=== PATIENT | male | born 1970 | race Caucasian/White ===

== ENCOUNTER 2025-01-28 09:55 | Outpatient (CLI) | payer BC, SELFPAY ==
--- NOTE | 2025-01-28 10:20 | NEURO_ITS ---
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 # Severe left Carpal Tunnel Syndrome. # Moderate right Carpal Tunnel Syndrome. 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 # Normal Needle/EMG exam. Nerve Conduction Studies ?Stim Site NR Peak (ms) P-T Amp (?V) Site1 Site2 Delta-P (ms) Dist (cm) Eliseo (m/s) Left Median Anti Sensory (2-3nd Digit) Wrist ? 13.4 11.3 Wrist 2-3nd Digit 13.4 14.0 10 Wrist ? 12.7 4.6 Wrist 2-3nd Digit 13.4 14.0 10 Right Median Anti Sensory (2-3nd Digit) Wrist ? 7.9 7.4 Wrist 2-3nd Digit 7.9 14.0 18 Wrist ? 6.1 7.1 Wrist 2-3nd Digit 7.9 14.0 18 Left Radial Anti Sensory (Base 1st Digit) Wrist ? 1.9 16.4 Wrist Base 1st Digit 1.9 0.0 Right Radial Anti Sensory (Base 1st Digit) Wrist ? 2.2 24.2 Wrist Base 1st Digit 2.2 0.0 Left Ulnar Anti Sensory (5th Digit) Wrist ? 3.4 12.6 Wrist 5th Digit 3.4 14.0 41 Right Ulnar Anti Sensory (5th Digit) Wrist ? 3.2 7.6 Wrist 5th Digit 3.2 14.0 44 ?Stim Site NR Onset (ms) O-P Amp (mV) Site1 Site2 Delta-0 (ms) Dist (cm) Eliseo (m/s) Left Median Motor (Abd Poll Brev) Wrist ? 10.8 2.2 Elbow Wrist 6.1 33.0 54 Elbow ? 16.9 2.6 Right Median Motor (Abd Poll Brev) Wrist ? 8.2 1.4 Elbow Wrist 7.6 33.0 43 Elbow ? 15.8 1.1 Left Ulnar Motor (Abd Dig Minimi) Wrist ? 3.5 5.5 A Elbow Wrist 6.0 31.0 52 A Elbow ? 9.5 4.7 B Elbow Wrist 5.2 27.0 52 B Elbow ? 8.7 4.6 Right Ulnar Motor (Abd Dig Minimi) Wrist ? 3.5 7.2 A Elbow Wrist 6.6 33.0 50 A Elbow ? 10.1 5.9 B Elbow Wrist 5.2 26.0 50 B Elbow ? 8.7 5.0 F Wave Studies ?NR F-Lat (ms) L-R F-Lat (ms) Left Median (Mrkrs) (Abd Poll Brev) ? 28.71 12.22 Right Median (Mrkrs) (Abd Poll Brev) ? 40.94 12.22 Left Ulnar (Mrkrs) (Abd Dig Min) ? 33.63 0.00 Right Ulnar (Mrkrs) (Abd Dig Min) ? 33.63 0.00 Electromyography ?Side Muscle Nerve Root Ins Act Fibs Amp Dur Recrt Comment Right 1stDorInt Ulnar C8-T1 Nml Nml Nml Nml Nml Right Ext Indicis Radial (Post Int) C7-8 Nml Nml Nml Nml Nml Right Ext Digitorum Radial (Post Int) C7-8 Nml Nml Nml Nml Nml Right BrachioRad Radial C5-6 Nml Nml Nml Nml Nml Right PronatorTeres Median C6-7 Nml Nml Nml Nml Nml Right Abd Poll Brev Median C8-T1 Nml Nml Nml Nml Nml Right ABD Dig Min Ulnar C8-T1 Nml Nml Nml Nml Nml Right FlexPolLong Median (Ant Int) C7-8 Nml Nml Nml Nml Nml Right Abd Poll Long Radial (Post Int) C7-8 Nml Nml Nml Nml Nml Left 1stDorInt Ulnar C8-T1 Nml Nml Nml Nml Nml Left Ext Indicis Radial (Post Int) C7-8 Nml Nml Nml Nml Nml Left Ext Digitorum Radial (Post Int) C7-8 Nml Nml Nml Nml Nml Left BrachioRad Radial C5-6 Nml Nml Nml Nml Nml Left PronatorTeres Median C6-7 Nml Nml Nml Nml Nml Left Abd Poll Brev Median C8-T1 Nml Nml Nml Nml Nml Left ABD Dig Min Ulnar C8-T1 Nml Nml Nml Nml Nml Left FlexPolLong Median (Ant Int) C7-8 Nml Nml Nml Nml Nml Left Abd Poll Long Radial (Post Int) C7-8 Nml Nml Nml Nml Nml
--- OUTSIDE RECORDS SUMMARY | 2025-01-28 10:42 | XMS_ITS | Encounter Summary ---
Author Organization [facility] Address [address] [place] [address] Care Team Providers Care Tour Guide Name Role Phone Kieran Adams Primary Care Provider [phone] Darrick Montague DO Primary Care Provider [facility] Primary Care Provid er Encounter Details Date Type Department Care Team (Late st Contact Info) Description 04/27/2020 [employer] Message [facility] [address] [place] [address] Kieran Adams FNP [address] [place] [address] RE: Medication Questions Social History Tobacco Use Types Packs/Day Years Used Date Smoking Tobacco: Former Cigarettes Q uit: 1999 Smokeless Tobacco: Never Alcohol Use Standard Drinks/Week Comments Yes 0 (1 standard drink = 0.6 oz pur e alcohol) Sex and Gender Information Value Date Recorded Sex Assigned at Not on file Legal Sex Male 7:07 PM CDT Gender Identity Not on file Sexual Orientation Not on file documented as of this encounter Plan of Treatment Not on file documented as of this encounter Visit Diagnoses Not on filedocumented in this encounter Care Teams Tour Guide Relationship Specialty Start Date End Date Kieran Adams FNP [address] [place] [address] PCP - General NURSE PRACTITIONER 05/09/18 02/06/21 Darrick Montague DO [address] [place] [address] PCP - General FAMILY PRACTICE 02/07/21 08/05/23 Cathy Mcrae, [facility]- [address] [place] [id number] PCP - General Nurse Practitioner Family 08/06/23 documented as of this encounter
--- OUTSIDE RECORDS SUMMARY | 2025-01-28 10:42 | XMS_ITS | Encounter Summary ---
Author Organization [facility] Address [address] [place] [address] Care Team Providers Care Body Hanger Name Role Phone Darrick Montague DO Primary Care Provider Cathy Mcrae [facility] Primary Care Provid er Encounter Details Date Type Department Care Team (Late st Contact Info) Description 06/15/2023 [employer] Message [address] [address] Darrick Montague DO [address] [place] [address] RE: Test Results Social History Tobacco Use Types Packs/Day Years Used Date Smoking Tobacco: Former Cigarettes 1 10 0 11/28/1988 - 11/28/1998 Smokeless Tobacco: Never Alcohol Use Standard Drinks/Week Comments Yes 6.7 (1 standard drink = 0.6 oz p ure alcohol) Occasionally PHQ-2 Answer Date Recorded Patient Health Questionnaire-2 Score 0 06/14/2023 Sex and Gender Information Value Date Recorded Sex Assigned at Not on file Legal Sex Male 7:07 PM CDT Gender Identity Not on file Sexual Orientation Not on file documented as of this encounter Functional Status * RETIRED Are you deaf or do you have serious difficulty hearing Answer Date of Assessment Author Status No 02/25/2022 5:00 PM CDT Activ e * RETIRED Are you blind or do you have serious difficulty seeing, even when wearing glasses? Answer Date of Assessment Author Status No 02/25/2022 3:09 PM CDT Activ e * Do you have serious difficulty walking or climbing stairs? Answer Date of Assessment Author Status No 02/25/2022 3:09 PM CDT Jhonathan Moses RN Active * Do you have difficulty dressing or bathing? Answer Date of Assessment Author Status No 02/25/2022 3:09 PM CDT Jhonathan Moses RN Active * Because of a physical, mental, or emotional condition, do you have difficulty doing errands alone such as visiting a doctor's office or shopping? Answer Date of Assessment Author Status No 02/25/2022 3:09 PM CDT Jhonathan Moses RN Active documented as of this encounter Mental Status * Because of a physical, mental, or emotional condition, do you have serious difficulty concentrating, remembering, or making decisions? Answer Entry Date Author Status No 02/25/2022 3:09 PM CDT Jhonathan Moses RN Active documented in this encounter Progress Notes * Darrick Montague DO - 06/15/2023 1:18 PM CST No major concerns with labs. Just on the very edge of prediabetes, weight loss will help with this M TANK OPERATOR * Lilia Trevino RN - 06/15/2023 1:11 PM CST Please advise? M TANK OPERATOR documented in this encounter Plan of Treatment Not on file documented as of this encounter Visit Diagnoses Not on filedocumented in this encounter Additional Health Concerns Assessment Noted Time PHQ-9 Depression Total Score: 0 06/06/19 22 7:51 AM STEAM TANK OPERATOR documented as of this encounter Care Teams Body Hanger Relationship Specialty Start Date End Date Darrick Montague DO PCP - General FAMILY PRACTICE 02/07/21 08/05/23 Cathy Mcrae FNP- [address] [place] [address] PCP - General Nurse Practitioner Family 08/06/23 documented as of this encounter
--- OUTSIDE RECORDS SUMMARY | 2025-01-28 10:42 | XMS_ITS | Encounter Summary ---
Author Organization [facility] Address [address] [place] [address] Care Team Providers Care Health Insurance Agent Name Role Phone Kieran Adams [facility] Primary Care Provider [phone] WorkDarrick gardner DO Primary Care Provider Clementina Cathy E [facility] Primary Care Provid er Encounter Details Date Type Department Care Team (Late st Contact Info) Description 03/06/2016 Abstract [facility] Conversion Morris Santana MD [id number] [place] [address] Social History Tobacco Use Types Packs/Day Years Used Date Smoking Tobacco: Never Assessed Sex and Gender Information Value Date Recorded Sex Assigned at Not on file Legal Sex Male 7:07 PM CDT Gender Identity Not on file Sexual Orientation Not on file documented as of this encounter Miscellaneous Notes * Letter - Morris Santana MD - 03/06/2016 12:00 AM CST Mar 06, 2016 Morris Reyes [address] [place] [address] Dear Morris Reyes, Thank you for choosing [facility] for your health care needs. We appreciate the opportunity to help you maintain your well being. You recently attended the health fair. Your results came back normal or at goal. Please remember to follow up as discussed at your last appointment. If you have any questions please feel free to call the office at [phone], Option #3 or Option #1 to make an appointment to discuss these results. Respectfully Yours, Electronically Signed by: Morris Santana MD Cc: Patients Medical Record RAL CAR DRIVER documented in this encounter Plan of Treatment Not on file documented as of this encounter Visit Diagnoses Not on filedocumented in this encounter Care Teams Health Insurance Agent Relationship Specialty Start Date End Date Kieran Adams FNP [address] [place] [address] PCP - General NURSE PRACTITIONER 05/09/18 02/06/21 Darrick Montague DO [address] [place] [address] PCP - General FAMILY PRACTICE 02/07/21 08/05/23 Cathy Mcrae FNP- [address] [place] [address] PCP - General Nurse Practitioner Family 08/06/23 documented as of this encounter
--- OUTSIDE RECORDS SUMMARY | 2025-01-28 10:42 | XMS_ITS | Encounter Summary ---
Author Organization [facility] Address [address] [place] [address] Care Team Providers Care Gum Machine Operator Name Role Phone Kieran Adams Primary Care Provider [phone] Darrick Montague DO Primary Care Provider [facility] Primary Care Provid er Encounter Details Date Type Department Care Team (Late st Contact Info) Description 08/03/2020 PurePlay Message [facility] [address] [place] [address] Kieran Adams FNP [address] [place] [address] RE: Question Social History Tobacco Use Types Packs/Day Years [...] on filedocumented in this encounter Care Teams Gum Machine Operator Relationship Specialty Start Date End Date Kieran Adams FNP [address] [place] [address] PCP - General NURSE PRACTITIONER 05/09/18 02/06/21 Darrick Montague DO [address] [place] [address] PCP - General FAMILY PRACTICE 02/07/21 08/05/23 Cathy Mcrae, [facility]- [address] [place] [address] PCP - General Nurse Practitioner Family 08/06/23 documented as of this encounter
--- OUTSIDE RECORDS SUMMARY | 2025-01-28 10:42 | XMS_ITS | Encounter Summary ---
Author Organization [facility] Address [address] [place] [address] Care Team Providers Care Snake Charmer Name Role Phone Kieran Adams Primary Care Provider [phone] Darrick Montague DO Primary Care Provider [facility] Primary Care Provid er Encounter Details Date Type Department Care Team (Late st Contact Info) Description 03/03/2017 [place] [address] , Erich Patterson MD Social History Tobacco Use Types Packs/Day Years [...] on filedocumented in this encounter Care Teams Snake Charmer Relationship Specialty Start Date End Date Kieran Adams FNP [address] [place], [place] [address] PCP - General NURSE PRACTITIONER 05/09/18 02/06/21 Darrick Montague DO [address] [place] [address] PCP - General FAMILY PRACTICE 02/07/21 08/05/23 Cathy Mcrae, MATERIAL ASSISTANT-BC [address] [place] [address] PCP - General Nurse Practitioner Family 08/06/23 documented as of this encounter
--- OUTSIDE RECORDS SUMMARY | 2025-01-28 10:42 | XMS_ITS | Encounter Summary ---
Author Organization [facility] Address [address] [place] [address] Care Team Providers Care Mixing Engineer Name Role Phone Workman, Darrick Richardson DO Primary Care Provider Cathy Mcrae [facility] Primary Care Provid er Encounter Details Date Type Department Care Team (Late st Contact Info) Description 06/26/2022 [employer] Message [address] [id number] [facility] Provider results Social History Tobacco Use Types Packs/Day Years Used Date Smoking Tobacco: Former Cigarettes 1 10 0 11/28/1988 - 11/28/1998 Smokeless Tobacco: Never Alcohol Use Standard Drinks/Week Comments Yes 6.7 (1 standard drink = 0.6 oz p ure alcohol) Occasionally PHQ-2 Answer Date Recorded Patient Health Questionnaire-2 Score 0 06/09/2022 Sex and Gender Information Value Date Recorded Sex Assigned at Not on file Legal Sex Male 7:07 PM CDT Gender Identity Not on file Sexual Orientation Not on file COVID-19 Exposure Response Date Recorded In the last 10 days, have yo u been in contact with someone who was confirmed or suspected to have Coronavirus/COVID-19? No / Unsure 06/09/2022 8:13 AM CHORE WORKER documented as of this encounter Functional Status [...] Assessment Author Status No 02/25/2022 3:09 PM ANIKETT Jhonathan Moses RN Active * Do you have difficulty dressing or bathing? Answer Date of Assessment Author Status No 02/25/2022 3:09 PM Jhonathan Huertas RN Active * Because of a physical, mental, or emotional condition, do you have difficulty doing errands alone such as visiting a doctor's office or shopping? Answer Date of Assessment Author Status No 02/25/2022 3:09 PM Jhonathan Huertas RN Active documented as of this encounter Mental Status * Because of a physical, mental, or emotional condition, do you have serious difficulty concentrating, remembering, or making decisions? Answer Entry Date Author Status No 02/25/2022 3:09 PM Jhonathan [place]ertas RN Active documented in this encounter Plan of Treatment Not on file documented as of this encounter Visit Diagnoses Not on filedocumented in this encounter Additional Health Concerns Assessment Noted Time PHQ-9 Depression Total Score: 0 06/06/19 22 7:51 AM CHORE WORKER documented as of this encounter Care Teams Mixing Engineer Relationship Specialty Start Date End Date Darrick Montague DO PCP - General FAMILY PRACTICE 02/07/21 08/05/23 Cathy Mcrae, PROPELLER DRIVEN AIRPLANE MECHANIC- [address] [place] [address] PCP - General Nurse Practitioner Family 08/06/23 documented as of this encounter
--- OUTSIDE RECORDS SUMMARY | 2025-01-28 10:42 | XMS_ITS | Clinical Summary ---
Author Organization [facility] Address [address] [place] [address] Care Team Providers Care Mat Gauger Name Role Phone [facility] Primary Care Provid er Allergies Active Allergy Reactions Criticality Noted Date Comments Nifedipine Er Headache 04/14/2008 Medications HYDROcodone-acet aminophen (NORCO) 5-325 MG tabletIndication s:Acute Pain < 7 Day Supply Take 1-2 tablets by mouth every 6 (six) hours as needed for Pain. Indications: Acute Pain < 7 Day Supply 15 tablet 2 Active Additional Information Patient not taking.Reported on 06/14/2023 ondansetron (ZOFRAN) 4 MG tablet Take 1 tablet (4 mg total) by mouth every 8 (eight) hours as needed for Nausea. 10 tablet 2 Active Additional Information Patient not taking.Reported on 06/14/2023 triamterene-hydr oCHLOROthiazide (MAXZIDE-25) 37.5-25 MG tabletIndication s:Essential (primary) hypertension take 1 tablet by mouth daily. 90 tablet 1 4 Active metoprolol tartrate (LOPRESSOR) 100 MG tabletIndication s:Essential (primary) hypertension take 1 tablet by mouth daily 90 tablet 1 4 Active Active Problems Problem Noted Date Diagnosed Date Biliary colic 02/25/2022 Overview (02/25/2022): Added automatically from request for surgery [id number] Acute cholecystitis due to biliary calculus 01/29 Class 3 severe obesity due t o excess calories with serious comorbidity and body mass index (BMI) of 40.0 to 44.9 in adult 10/01/2019 Erectile dysfunction, unspecified erectile dysfu nction type 04/07/2019 Essential (primary) hypertension 03/26/2012 Immunizations Immunization Administration Dates Next Due Fluzone 6 Months+ Quad (0.5 mL Prefilled Syringe ) 05/10/2018 Influenza Adult (Generic) 04/07/2019,04/07/2019 Td 01/20/2009 Tdap (Generic) 09/27/2016,09/27/2016 Family History Medical History Relation Comments Cancer Father Diabetes Father Hypertension Father Prostate Cancer Father Diabetes Mother Hypertension Mother Relation Status Comments Father Mother Alive Social History Tobacco Use Types Packs/Day Years Used Date Smoking Tobacco: Former Cigarettes 1 10 0 11/28/1988 - 11/28/1998 Smokeless Tobacco: Never Tobacco Cessation:Counseling Given: Not Answered Alcohol Use Standard Drinks/Week Comments Yes 6.7 (1 standard drink = 0.6 oz p ure alcohol) Occasionally PHQ-2 Answer Date Recorded Patient Health Questionnaire-2 Score 0 06/14/2023 Sex and Gender Information Value Date Recorded Sex Assigned at Not on file Legal Sex Male 7:07 PM CDT Gender Identity Not on file Sexual Orientation Not on file Last Filed Vital Signs Vital Sign Reading Time Taken Comments Blood Pressure 167/102 07/17/2023 9:26 AM CDT Pulse 51 06/14/2023 9:13 AM SCLEROSCOPE TESTER Temperature 36.6 C (97.8 F) 06/14/2023 9:13 AM SCLEROSCOPE TESTER Respiratory Rate 18 06/14/2023 9:13 AM SCLEROSCOPE TESTER Oxygen Saturation 96% 06/14/2023 9:13 AM SCLEROSCOPE TESTER Inhaled Oxygen Concentration - - Weight 155.4 kg (342 lb 8 oz) 07/17/2023 9:18 AM CDT Height 188 cm (6' 2) 07/17/2023 9:18 AM CDT Body Mass Index 43.97 07/17/2023 9:18 AM CDT Plan of Treatment Health Maintenance Due Date Last Done Comments Colorectal Cancer Screening Colonoscopy (10 Years) 1971 Hepatitis C 1989 Hepatitis B Vaccines (1 of 3 - 19+ 3-dose series) 1990 Pneumococcal Vaccine: 50+ Years (1 of 1 - PCV) 2021 Zoster Vaccines (1 of 2) 2021 PHQ-2 (Physician [place]) 04/30/2024 06/14/2023 Annual Physical 06/14/2024 06/14/2023, 06/09/2022, 06/06/2021 COVID-19 Vaccine (4 - 2024-2 6 season) 2024 01/25/2021, 05/24/2020, 04/26/2020 DTaP, Tdap and Td Vaccines ( 3 - Td or Tdap) 09/27/2026 09/27/2016, 09/27/2016, 01/20/2009 Meningococcal B Vaccine Aged Out No l onger eligible based on patient's age to complete this topic Meningococcal Vaccine Aged Out No jackson juan pablo eligible based on patient's age to complete this topic RSV Immunizations Under 20 Months Aged Out No longer eligible b ased on patient's age to complete this topic [place] [address] Advance Directives * Full Code (Latest Code Status on File) Date Activated Date Inactivated Comments 02/25/2022 1:35 PM 02/26/2022 2:48 PM Care Teams Mat Gauger Relationship Specialty Start Date End Date Cathy Mcrae FNP-BC [address] [place] [address] PCP - General Nurse Practitioner Family 08/06/23
--- OUTSIDE RECORDS SUMMARY | 2025-01-28 10:42 | XMS_ITS | Encounter Summary ---
Author Organization [facility] Address [address] [place] [address] Care Team Providers Care Painter Decorator Name Role Phone Kieran Adams Primary Care Provider [phone] Darrick Montague DO Primary Care Provider [facility] Primary Care Provid er Encounter Details Date Type Department Care Team (Late st Contact Info) Description 10/08/2020 [employer] Message [facility] [address] [place] [address] Kieran Adams FNP [address] [place] [address] RE: Medication Questions Social History [...] on filedocumented in this encounter Care Teams Painter Decorator Relationship Specialty Start Date End Date Kieran Adams FNP [address] [place] [address] PCP - General NURSE PRACTITIONER 05/09/18 02/06/21 Darrick Montague DO [address] [place] [address] PCP - General FAMILY PRACTICE 02/07/21 08/05/23 Cathy Mcrae, [facility]- [address] [place] [address] PCP - General Nurse Practitioner Family 08/06/23 documented as of this encounter
--- OUTSIDE RECORDS SUMMARY | 2025-01-28 10:42 | XMS_ITS | Encounter Summary ---
Author Organization [facility] Address [address] [place] [address] Care Team Providers Care Able Seaman Name Role Phone Kieran Adams Primary Care Provider [phone] Darrick Montague DO Primary Care Provider [facility] Primary Care Provid er Encounter Details Date Type Department Care Team (Late st Contact Info) Description 02/02/2020 [employer] Message [facility] [address] [place] [address] Kieran Adams FNP [address] [place] [address] RE: Question Social History Tobacco [...] on filedocumented in this encounter Care Teams Able Seaman Relationship Specialty Start Date End Date Kieran Adams FNP [address] [place] [address] PCP - General NURSE PRACTITIONER 05/09/18 02/06/21 Darrick Montague DO [address] [place] [address] PCP - General FAMILY PRACTICE 02/07/21 08/05/23 Cathy Mcrae, PERSONNEL REPRESENTATIVE- [address] [place] [address] PCP - General Nurse Practitioner Family 08/06/23 documented as of this encounter
--- OUTSIDE RECORDS SUMMARY | 2025-01-28 10:42 | XMS_ITS | Encounter Summary ---
Author Organization [facility] Address [address] [place] [address] Care Team Providers Care Vice President For Philanthropy Name Role Phone Kieran Adams Primary Care Provider [phone] Darrick Montague DO Primary Care Provider Cathy Mcrae-DONN Primary Care Provid er Encounter Details Date Type Department Care Team (Late st Contact Info) Description 10/01/2001 Abstract [facility] Conversion Md, Generic Conversion, Social History Tobacco Use Types Packs/Day Years [...] on filedocumented in this encounter Care Teams Vice President For Philanthropy Relationship Specialty Start Date End Date Kieran Adams FNP [address] [place] [address] PCP - General NURSE PRACTITIONER 05/09/18 02/06/21 Darrick Montague DO [address] [place] [address] PCP - General FAMILY PRACTICE 02/07/21 08/05/23 Cathy Mcrae FNP- [address] [place] [address] PCP - General Nurse Practitioner Family 08/06/23 documented as of this encounter
--- OUTSIDE RECORDS SUMMARY | 2025-01-28 10:42 | XMS_ITS | Encounter Summary ---
Author Organization [facility] Address [address] [place] [address] Care Team Providers Care Moto Mix Operator Name Role Phone Kieran Adams Primary Care Provider [phone] Darrick Montague DO Primary Care Provider [facility] Primary Care Provid er Encounter Details Date Type Department Care Team (Late st Contact Info) Description 02/09/[address] [address] [facility] [address] [place] [address] Kieran Adams FNP [address] [place] [address] RE: Follow Up/Update Social History Tobacco Use Types Packs/Day Years [...] on filedocumented in this encounter Care Teams Moto Mix Operator Relationship Specialty Start Date End Date Kieran Adams FNP [address] [place] [address] PCP - General NURSE PRACTITIONER 05/09/18 02/06/21 Darrick Montague DO [address] [place] [address] PCP - General FAMILY PRACTICE 02/07/21 08/05/23 Cathy Mcrae, [facility]- [address] [place] [address] PCP - General Nurse Practitioner Family 08/06/23 documented as of this encounter
== END 2025-01-28 09:56 | disposition home or self-care (01) ==
LOC: ANHNEURO 09:59
PROVIDERS: PCP Internal Medicine; Visit Provider Internal Medicine
DX: G56.03 Carpal tunnel syndrome, bilateral upper limbs (principal)
CPT/HCPCS: 95886; 95911